=== PATIENT | male | born 1965 | race African-American/Black ===

== ENCOUNTER 2017-07-09 14:47 | Inpatient (IN) | payer MEDICARE, SELFPAY ==
[2017-07-09 17:05] LABS: Bilirubin Negative (Negative); Blood, Urine Small (Negative); Clarity CLEAR (Clear); Glucose, Urine (Dipstick) Negative (Negative); Leukocyte Moderate (Negative); Nitrite Negative (Negative); Protein, Urine (Dipstick) Negative (Neg-Trace); Specific Gravity, Urine 1.017 (1.002-1.036)
[2017-07-09 17:06] LABS: Bacteria/HPF None Seen HPF (None Seen); Hyaline Casts/LPF 0-3 HYALINE CAST LPF (0-3 Hyaline); Pathc Cast-AUWi Flag 0.13 (0-2.49); Squamous Epithelial 0-3 HPF (0-3)
[2017-07-09 17:14] LABS: Amphetamine Not Detected (NotDetected); Barbiturates Screen Not Detected (NotDetected); Benzodiazepine Screen Not Detected (NotDetected); Cocaine Metabolite Screen Not Detected (NotDetected); Medtox Control Line Valid? VALID (VALID); Medtox Reader # READER 1; Methadone Not Detected (NotDetected); Methamphetamine Not Detected (NotDetected); Opiate Screen Not Detected (NotDetected); Oxycodone Screen Not Detected (NotDetected); Phencyclidine (PCP) Not Detected (NotDetected); THC/Cannabinoid Screen Not Detected (NotDetected); Tricyclic Screen Not Detected (NotDetected)
--- NOTE | 2017-07-09 17:25 | CT ---
CT BRAIN WITHOUT CONTRAST: HISTORY: Headache with history of CVA. FINDINGS: Comparison is made with the exam of 07/30/13. There are changes of chronic small-vessel ischemic disease and old cerebellar infarctions, left large r than right. No evidence of acute infarct, hemorrhage, midline shift, or abnormal extraaxial fluid collections are seen. The ventricular size is normal and the basilar cisterns patent. The bony calv arium is intact. Visualized paranasal sinuses and mastoid air cells are well aerated. IMPRESSION: No CT evidence of acute intracranial process. POS: [facility]
[2017-07-09 17:30] LABS: #Basophils 0.1 thou/uL (0.0-0.2); #Eosinphils 0.2 thou/uL (0.0-0.7); #Lymphocytes 2.4 thou/uL (1.20-3.40); #Monocytes 0.5 thou/uL (0.11-0.59); #Neutrophils 5.1 thou/uL (1.40-6.50); %Basophils 1.1 % (0.0-1.0); %Lymphocytes 28.9 % (21.0-51.0); %Monocytes 5.9 % (0.0-10.0); Mean Corpuscular HGB CONC 33.1 g/dL (32.0-36.0); Mean Corpuscular Hemoglobin 29.9 pg (27.0-31.0); Mean Corpuscular Volume 90.3 fl (80.0-94.0); Mean Platelet Volume 9.8 fL (7.4-10.4); Platelet Count 185 thou/uL (130-400); RBC Distribution Width 12.7 % (11.5-14.5); Red Blood Cell (RBC) Count 4.69 mill/uL (4.70-6.10); White Blood Cell (WBC) Count 8.2 thou/uL (4.8-10.8)
[2017-07-09 17:52] LABS: ALT (SGPT) 18 U/L (8-55); AST (SGOT) 18 U/L (5-34); Alkaline Phosphatase 125 U/L (40-150); Anion Gap 15 mmol/L (10-20); BUN (Urea Nitrogen) 16 mg/dL (8.4-25.7); Bilirubin, Total 0.4 mg/dL (0.2-1.2); Calc. Creatinine Clearance 0 mL/min (70-130); Calcium 9.7 mg/dL (7.8-10.44); Carbon Dioxide 23 mmol/L (22-29); Chloride 107 mmol/L (98-107); Estimated GFR-MDRD Greater than 90; Globulin 3.7 g/dL (2.4-3.5); Glucose 117 mg/dL (70-105); Potassium 3.9 mmol/L (3.5-5.1); Protein, Total 7.7 g/dL (6.0-8.3); Sodium 141 mmol/L (136-145)
[2017-07-09 17:57] LABS: CKMB 1.1 ng/mL (0-6.6); Troponin I Less than 0.010 ng/mL (< 0.028)
[2017-07-09] MEDS ORDERED: cefTRIAXone\\ROCEPHIN 2 GM in Sodium Chloride 0.9% 100 ML IVPB SCH (18:45)
[2017-07-09] MEDS ORDERED: Metoprolol Tartrate 50 MG TAB ONE (21:25)
[2017-07-09] MEDS ORDERED: Acetaminophen 325 MG TAB PO PRN (22:54)
[2017-07-09] MEDS ORDERED: Ondansetron HCl/PF 4 MG/2 ML Vial IVP PRN (22:54)
[2017-07-09] MEDS ORDERED: Sodium Chloride 0.65% Nasal 44 ML BOT EA NARE PRN (22:54)
[2017-07-09] MEDS ORDERED: Loperamide HCl 2 MG CAP PO PRN (22:54)
[2017-07-09] MEDS ORDERED: Mag-Al 1200 mg/1200 mg/30 ML UDCUP PO PRN (22:54)
[2017-07-09] MEDS ORDERED: Loratadine 10 MG TAB PO PRN (22:54)
[2017-07-09] MEDS ORDERED: Senokot 8.6 MG TAB PO PRN (22:54)
[2017-07-09] MEDS ORDERED: Zolpidem Tartrate 5 MG TAB PO PRN (22:54)
[2017-07-09] MEDS ORDERED: Ondansetron ODT 4 MG TAB PO PRN (22:54)
[2017-07-09] MEDS ORDERED: Chloraseptic Spray 180 ml Bottle PO PRN (22:54)
[2017-07-09] MEDS ORDERED: Milk Of Magnesia 30 ML UDCUP PO PRN (22:54)
[2017-07-09] MEDS ORDERED: Diabetic Tussin 200 MG/10 ML UDCUP PO PRN (22:54)
[2017-07-09] MEDS ORDERED: HYDROcodone/Acetaminophen 5/325 mg Tablet PO PRN (22:54)
[2017-07-09] MEDS ORDERED: hydrALAZINE 20 MG/ML VIAL SLOW IVP PRN (22:54)
[2017-07-09] MEDS ORDERED: cefTRIAXone\\ROCEPHIN 1 GM in Sodium Chloride 0.9% 100 ML IVPB SCH (23:00)
--- NOTE | 2017-07-09 23:51 | HP ---
PRIMARY CARE PHYSICIAN: [facility]. REASON FOR ADMISSION: Altered mental status, urinary tract infection. HISTORY OF PRESENT ILLNESS: A 51-year-old male who has history of left cerebellar stroke and he has occlusion of left vertebral artery, who was brought to emergency room for altered mental status for the last 5 days. The patient unfortunately not able to provide any history because he has expressive aphasia. He has difficulty concentrating and patient's sister noticed that he was dragging his left leg. The patient does not have any fever and he is not complaining of any urinary tract infection symptoms, but in the emergency room his urinalysis showed urinary tract infection. His routine blood tests including CBC, CMP, cardiac enzyme and urine drug screen came back negative. CT brain in the emergency room, all showed unremarkable. The patient is being admitted to stroke floor for observation for altered mental status and urinary tract infection. REVIEW OF SYSTEMS: All review of systems tried to review with the patient, but patient is not able to provide any review of history and is not reliable because of his altered mental status. PAST MEDICAL HISTORY: History of left cerebellar hemisphere stroke, hypertension, dyslipidemia, gastroesophageal reflux disease, history of cerebrovascular accident with residual weakness. PAST PSYCHIATRIC HISTORY: Reviewed and negative. PAST SURGICAL HISTORY: Left knee surgery, percutaneous endoscopic gastrostomy tube placement. SOCIAL HISTORY: The patient has history of smoking in the past, currently whether he smokes or drinks alcohol is uncertain. ALLERGIES: No known drug allergy. CURRENT HOME MEDICATIONS: Aspirin 81 mg p.o. daily, Plavix 75 mg p.o. daily, lovastatin 20 mg p.o. daily, lisinopril 20 mg p.o. daily, metoprolol 25 mg p.o. b.i.d. EMERGENCY ROOM COURSE: The patient is given metoprolol tartrate 50 mg, aspirin 324 mg and Rocephin 2 g. FAMILY HISTORY: No strong family history of premature coronary artery disease, stroke or cancer, though hypertension runs among several family members including both parents. PHYSICAL EXAMINATION: VITAL SIGNS: On arrival, blood pressure 162/68, pulse 63, respiratory rate 18, temperature 98.7, saturation 95% on room air, weight 97.5 kilograms. GENERAL: The patient is currently alert, awake, hypertensive, in no acute distress. HEENT: Head is normocephalic, atraumatic. Eyes: Pupils round, reactive to light. Extraocular muscles intact. ENT: Oropharynx within normal limits. Moist mucous membranes. No oral lesions. No pharyngeal erythema, no exudate. NECK: Supple, no JVD, no thyromegaly, no carotid bruit, no jugular venous distention. LUNGS: Clear to auscultation without any rhonchi or rales. CARDIAC: S1, S2 regular without any murmur. ABDOMEN: Soft, bowel sounds present, nontender, nondistended. No organomegaly , no mass, no suprapubic tenderness. BACK: Unremarkable. No CVA tenderness. EXTREMITIES: Upper extremities: Passive movement of all joints are normal. Lower extremities: No edema. Good peripheral pulsation. SKIN: No skin rash. HEMATOLOGICAL SYSTEM: No lymphadenopathy. SKIN: No skin rash. PSYCHIATRIC: Normal affect. NEUROLOGIC: The patient is moving all four limbs. He is awake, alert, but patient is not able to provide answer to questions well. He has difficulty expressing herself. SIGNIFICANT LABORATORY DATA: EKG, normal sinus rhythm without any ischemic changes. CT brain based on my review, no acute intracranial process. CBC: WBC 8.2, hemoglobin 14.0, platelets 185. BMP: Sodium 141, potassium 3.9, chloride 107, carbon dioxide 23, BUN 16, creatinine 0.99, glucose 117, calcium 9.7. LFT: AST 18, ALT 18, alkaline phosphatase 125, albumin 4.0. Cardiac enzymes negative. Urinalysis suggestive of urinary tract infection. Urine drug screen negative. ASSESSMENT AND PLAN/IMPRESSION: 1. Acute altered mental status of uncertain duration, but at least 5 days per patient's sister. Rule out cerebrovascular accident. Per patient, the patient has speech problem and dragging of leg. He has previous history of cerebrovascular accident. At this point, I will do only MRI brain to rule out any acute subacute cerebrovascular accident. If MRI is negative, then probably the patient's current altered mental status may be related with pustular dementia, which is gradually getting worse or current acute problem with urinary tract infection. We will do neuro check on stroke floor. 2. Urinary tract infection. Urine culture obtained from the emergency room. We will continue with Rocephin 1 gram q.24 hours. 3. History of cerebrovascular accident. This patient has left vertebral artery occlusion based on MRI neck. He also has intracranial vascular abnormality with right A1 segment and right P1 segment stenosis, so he has poor perfusion of his brain and chronic ischemic white matter changes. We will continue aspirin and Plavix as per home dosage. 4. Hypertension. Continue lisinopril 20 mg p.o. daily. 5. Metoprolol 25 mg twice daily. 6. Dyslipidemia. Continue lovastatin equivalent, Lipitor 10 mg p.o. at bedtime. 7. Deep venous thrombosis prophylaxis. Lovenox 40 mg subcutaneously daily. 8. Gastrointestinal prophylaxis. Pepcid 20 mg p.o. b.i.d. 9. Code status: The patient is FULL CODE. Disposition plan based on clinical course. Most likely the patient can be discharged home in 24 to 48 hours. MTDD
[2017-07-10] MEDS: Lisinopril 20 MG TAB PO SCH (08:49)
[2017-07-10] MEDS: Clopidogrel Bisulfate 75 MG TAB PO SCH (08:49)
[2017-07-10] MEDS: Enoxaparin Sodium 40 MG/0.4 ML SYRINGE SC SCH (08:50)
[2017-07-10] MEDS: Famotidine 20 MG TAB PO SCH ×2 (08:50→21:30)
[2017-07-10] MEDS ORDERED: Prevnar 13-Val Conj/PF 0.5 ML SYRINGE IM ONE (09:00)
[2017-07-10] MEDS ORDERED: FLU VACC QS2017-18 36 mo. & older 0.5 ML SYRINGE IM ONE (09:00)
[2017-07-10] MEDS: Metoprolol Tartrate 25 MG TAB PO SCH ×2 (10:27→21:31)
--- NOTE | 2017-07-10 11:27 | MRI ---
MRI BRAIN NONCONTRAST: DATE: 07/10/17 HISTORY: 51-year-old male with headache and history of CVA. COMPARISON: MRI of 07/31/13. FINDINGS: There is a new punctate focus of restricted diffusion in the left paramedian centrum semiovale, repre senting an acute or subacute tiny lacunar infarction of the left cerebral deep white matter (axial im age 42 of 50, series 6). Previously, there were what were then acute or subacute infarctions of the left cerebellar hemisphere and the left inferior cerebellar peduncle (restiform body) of the medulla. Now, those areas have tra nsformed into moderately large region of encephalomalacia and gliosis. There is no evidence of associ ated recent or remote hemorrhage with them. In addition to the scattered tiny old lacunar infarctions of the basal ganglia bilaterally that were previously present, there are currently many additional, and larger lacunar infarctions involving the bilateral basal ganglia, internal and external capsules, and thalami, now than before. One of these, involving the right globus pallidus and genu of right internal capsule, measuring approximately 1 x 0.7 cm, and is moderately hyperintense on the DWI, but this appears to be due to T2 shine-through rat her than actual restricted diffusion (image 14 of 25, series 9; 39 of 50, series 6). Again noted are the numerous tiny and small old lacunar infarctions in the katerine bilaterally. There are multiple tiny focal T2 hyperintense lesions in the hilton radiata and centrum semiovale shantel aterally, greater than on the previous MRI. These are consistent with chronic ischemic white matter c hanges due to microvascular atherosclerosis and/or tiny old deep white matter lacunar infarctions. Th ere is no evidence of recent or remote intra-axial hemorrhage. No mass effect, midline shift, or extr a-axial fluid collection. Ventricles are normal in size and configuration. IMPRESSION: 1. A new, acute or subacute tiny left cerebral deep white matter lacunar infarction. 2. Moderate sized old infarction in the inferior posterior aspect of the left cerebellar hemisphere (left posterior-inferior cerebellar artery, PICA, territory), and the left inferior cerebellar pedunc le of the medulla. These were all acute or subacute on the 07/31/13 MRI. 3. Multiple old lacunar infarctions in the katerine. 4. Multiple lacunar infarctions in the bilateral corpus striatum and thalami, many more, and larger, than on the previous MRI of 07/31/13. SOFIA Sams POS: [facility]
--- NOTE | 2017-07-10 11:33 | PDOC.PN ---
- Subjective Encounter Start Date: 07/10/17 Encounter Start Time: 09:05 states he is doing okay. only complaint is the inability to express himself like he wants to - Objective Resuscitation Status: Resuscitation Status FULL:Full Resuscitation Vital Signs & Weight: Vital Signs (12 hours) Temp Pulse Resp BP BP Pulse Ox 07/10/17 08:49 164/87 H 07/10/17 08:00 98.4 F 56 L 18 07/10/17 07:20 98.4 F 56 L 18 164/87 H 98 07/10/17 05:02 98.4 F 72 16 174/84 H 98 Weight Weight 210 lb 11.2 oz I&O: 07/09/17 07/10/17 07/11/17 06:59 06:59 06:59 Intake Total 480 Balance 480 Result Diagrams: 07/09/17 15:30 07/09/17 15:30 Additional Labs: Accuchecks 07/10/17 10:35 POC Glucose 107 Phys Exam - Physical Examination Constitutional: NAD HEENT: PERRLA, moist MMs Neck: no nodes, no JVD, supple Respiratory: no wheezing, no rales, no rhonchi, clear to auscultation bilateral Cardiovascular: RRR, no significant murmur, no rub Gastrointestinal: soft, non-tender, no distention Musculoskeletal: no edema, pulses present Neurological: normal sensation, moves all 4 limbs oriented to only person but not to time and place. expressive aphasia Psychiatric: normal affect Skin: cap refill <2 seconds Dx/Plan (1) Expressive aphasia Code(s): R47.01 - APHASIA Status: Acute (2) Altered mental status Code(s): R41.82 - ALTERED MENTAL STATUS, UNSPECIFIED Status: Acute (3) History of CVA (cerebrovascular accident) Code(s): Z86.73 - PRSNL HX OF TIA (TIA), AND CEREB INFRC W/O RESID DEFICITS Status: Acute (4) HTN (hypertension) Code(s): I10 - ESSENTIAL (PRIMARY) HYPERTENSION Status: Acute (5) HLD (hyperlipidemia) Code(s): E78.5 - HYPERLIPIDEMIA, UNSPECIFIED Status: Acute - Plan cont current plan of care, plan discussed w/ family, PT/OT * . will get an MRA of head and neck consult neuro very unsual of someone of his age to be this forgetful. possible related to the multiple infarcts in the past. will likely get an echo if one hasnt been done recently
[2017-07-10] MEDS ORDERED: cefTRIAXone\\ROCEPHIN 1 GM, Syringe 0.4 ML in Sterile Water 9.6 ML SLOW IVP SCH (20:00)
[2017-07-10] MEDS ORDERED: Atorvastatin Calcium 10 MG TAB PO SCH (21:00)
--- NOTE | 2017-07-10 22:00 | CON ---
DATE OF CONSULTATION: 07/10/2017 CONSULTING PHYSICIAN: Hospitalist Service. IMPRESSION: 1. New lacunar infarction with some increased ataxia. 2. Vascular dementia. 3. Hypertension. 4. Noncompliance. 5. Tobacco use. PLAN: 1. Restart antiplatelet therapy and statin. 2. Carotid evaluation. 3. Home health follow up for monitoring of medication. 4. Discontinue smoking. Mr. Edwards is a 51-year-old man with past history of 2 prior strokes, the last one was about 2 years ago, which resulted in some transient hemiparesis and made a good recovery. He has been living alone in his home. His family notes he has gotten more forgetful. He was noted to be dragging his left l eg more than normal. They decided he needed to be checked out. He was brought into the hospital for evaluation. MRI of the brain showed multiple areas of infarction including the cerebellum, brainste m and subcortical regions. There is a new acute area of infarction in the left subfrontal region. H is EKG showed normal sinus rhythm and laboratory evaluation was only notable for a possible urinary t ract infection. PAST MEDICAL HISTORY: As listed above including GERD. ALLERGIES: None reported. SOCIAL HISTORY: Positive for tobacco, no illicit drug use. FAMILY HISTORY: Noncontributory. REVIEW OF SYSTEMS: No complaints of headache, no nausea, vomiting, vertigo, chest pain, shortness of breath, double vision, difficulty swallowing. PHYSICAL EXAMINATION: GENERAL: A reasonably healthy appearing middle-aged man in no distress. VITAL SIGNS: Stable. He is afebrile. HEENT: Pupils are equal and reactive. Conjunctivae clear. Oropharynx is clear. NECK: Supple. EXTREMITIES: No cyanosis. NEUROLOGIC: He was alert and cooperative. His speech is fluent and clear. His short term recall wa s poor. He could not recall the name of the hospital or what year was. He was quite slow in his ans wers to most of these questions. Cranial nerves were intact. Motor exam showed good strength bilate rally with very mild tendency for the left leg turnout and dragged a bit as he walked. Sensation was intact to light touch. No abnormal movements were seen. SUMMARY: This is a middle-aged man who has fairly extensive, vascular disease, and the family is con cerned about his noncompliance. He is not willing to live with anyone. Therefore, home health would seem to be a reasonable option and he should be able to be discharged shortly after clearing his car otids.
[2017-07-11 06:35] LABS: Cardiac Risk 6.2 (Less than 4.5)
[2017-07-11 08:17] VITALS: TEMP 98.5
[2017-07-11] MEDS: Clopidogrel Bisulfate 75 MG TAB PO SCH (08:25)
[2017-07-11] MEDS: Lisinopril 20 MG TAB PO SCH (08:25)
[2017-07-11] MEDS: Famotidine 20 MG TAB PO SCH (08:25)
[2017-07-11] MEDS: Enoxaparin Sodium 40 MG/0.4 ML SYRINGE SC SCH (08:26)
--- NOTE | 2017-07-11 09:36 | MRI ---
MRA HABEMATOLEL OF [place] WITH 3D VOLUME RENDERING: CLINICAL HISTORY: Altered mental status, CVA. FINDINGS: Distal left vertebral artery not visualized. There is flow-related signal within the distal right ve rtebral artery with flow-related heterogeneous artifact limiting assessment. There is heterogeneity and resultant irregularity of the basilar artery lumen with moderate multifocal stenosis of the basil ar artery demonstrated. 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 There is mild multifocal atherosclerotic irregularity of each MCA. Small-caliber bilateral anterior cerebral arteries are present. There is an anterior communicating artery visualized, small in caliber. A2 segments are patent bilaterally and symmetric in caliber. Tiny, medially located out pouching emanates from the cavernous segment right internal carotid artery, measuring approximately 1 mm. This may relate to a tiny aneurysm as a vessel arising from this structure is not confirmed. N o high-grade stenosis of the terminal carotid arteries. IMPRESSION: 1. Multifocal atherosclerotic vascular disease of the intracranial circulation as above. 2. There is a tiny medially located outpouching of the cavernous segment right internal carotid kira ry which may relate to a 1 mm aneurysm. POS: [facility]
--- NOTE | 2017-07-11 11:14 | MRI ---
MRA NECK WITH 3D VOLUME RENDERING NONCONTRAST EXAM: INDICATION: Altered mental status, CVA. FINDINGS: There is artifact which does limit evaluation of each common carotid artery. The imaged aspects of t he common carotid artery reveal no high-grade stenosis or occlusion. There is mild atherosclerotic i rregularity at the proximal aspect of the cervical left ICA. The left vertebral artery is not visual ized. There is artifact throughout the course of the right vertebral artery which limits assessment, although no definite high-grade stenosis or occlusion of the imaged aspects of the right vertebral a rtery. Subclavian arteries are not imaged for comment. IMPRESSION: 1. Markedly limited exam due to multilevel artifact. There is mild atherosclerosis of the proximal aspect of the cervical left internal carotid artery. 2. Nonvisualization of the left vertebral artery. POS: [facility]
[2017-07-11] MEDS: Metoprolol Tartrate 25 MG TAB PO SCH (11:31)
[2017-07-11 12:36] VITALS: BP 148/74
--- NOTE | 2017-07-11 21:42 | DIS ---
DISCHARGE DIAGNOSES: 1. Expressive aphasia, likely secondary to acute ischemic cerebrovascular accident. 2. Altered mental status, resolved. 3. History of multiple cerebrovascular accidents. 4. Hypertension. 5. Hyperlipidemia. 6. Nicotine abuse. HOSPITAL COURSE: While patient was in the hospital, due to his significant risk factors for stroke, patient had MRI as well as MRA of the head and neck. Neurology was also consulted due to acute encep halopathy while he was here in the hospital. Patient was found to have an acute stroke in the fronta l region and was found to have multiple old strokes as well. Patient was placed back on his Plavix a nd aspirin. After much discussion, it was felt that the patient was not taking his medications as pr escribed as well as he continued to smoke. Patient's statin was changed to Lipitor. He complained o f some muscle cramps while taking those; therefore, the patient was started on only 10 mg of Lipitor, which can be adjusted as he tolerates it. PT has seen the patient while he was here in the hospital . After much discussion, the patient refused to go home with family, now go to facility. The patien t was in his right state of mind and was oriented x4, therefore, we had to respect his wishes. Becau se the patient was stable, we will comfortable discharging the patient home on aspirin as well as Judy vix and to continue taking Lipitor that was started here in the hospital. He will go home with home health with PT, OT. I spoke with family about the importance of making sure the patient states compl iant with his medications. I also spoke with the patient extensively about tobacco cessation. He st ates that he would work on trying to quit. Due to the patient doing well, I was comfortable discharg ing the patient home. DISCHARGE CONDITION: Much improved than when he first came in. DISCHARGE ACTIVITY: As tolerated. DISCHARGE DIET: Heart-healthy diet. DISCHARGE MEDICATIONS: Please see discharge medication list. FOLLOWUP APPOINTMENTS: Patient will follow up with primary care physician in 1 week. DISCHARGE DISPOSITION: To home. DISCHARGE PLAN: Discharge plan was greater than 30 minutes.
== END 2017-07-11 16:11 | disposition home health service (06) | DRG 64 ==
LOC: ERS 14:47 → 2SE 22:06
PROVIDERS: ADMIT Internal Medicine; ATTEND Internal Medicine
DX: I63.9 Cerebral infarction, unspecified (principal); G93.49 Other encephalopathy; R47.01 Aphasia; I69.359 Hemiplegia and hemiparesis following cerebral infarction affecting unspecified side; N39.0 Urinary tract infection, site not specified; R27.0 Ataxia, unspecified; F01.50 Vascular dementia, unspecified severity, without behavioral disturbance, psychotic disturbance, mood disturbance, and anxiety; I10 Essential (primary) hypertension; I65.02 Occlusion and stenosis of left vertebral artery; E78.5 Hyperlipidemia, unspecified; F17.210 Nicotine dependence, cigarettes, uncomplicated; Z91.14 Patient's other noncompliance with medication regimen; K21.9 Gastro-esophageal reflux disease without esophagitis; Z23 Encounter for immunization
CPT/HCPCS: 36415; 36416; 70450; 70544; 70547; 70551; 80053; 80061; 80306; 81003; 81015; 82553; 84484; 85025; 87086; 90471; 90670; 90682; 93005; 93306; 96365; A4216; G0008; G0009; G8978-GP-CJ; G8979-GP-CJ; G8980-GP-CJ; G8987-GO-CI; G8988-GO-CI; G8989-GO-CI; G9162-GN-CJ; G9163-GN-CI; J0696; J1650; J7050; Q2036

== ENCOUNTER 2024-02-18 11:50 | Outpatient (CLI) | payer MEDICARE ==
[~2024-02-18 11:50] MED LIST: Iopamidol-370 76% 500 ML MDV (1 ML CHARGE) ONE
[2024-02-18] MEDS ORDERED: Barium Sulfate 96% 176 GM BOT (xray ONLY) ONE (13:20)
[2024-02-18] MEDS ORDERED: E-Z-HD 98% W/W 340GM BOT (x-ray ONLY) ONE (13:20)
== END 2024-02-18 11:51 | disposition home or self-care (01) ==
LOC: CT 11:50
PROVIDERS: ATTEND Family Medicine
DX: I63.512 Cerebral infarction due to unspecified occlusion or stenosis of left middle cerebral artery (principal); I69.320 Aphasia following cerebral infarction; R13.10 Dysphagia, unspecified; F17.210 Nicotine dependence, cigarettes, uncomplicated
CPT/HCPCS: 70470; 71271; 74220; 82565; Q9967